=== PATIENT | female | born 1965 | race Caucasian/White ===

== ENCOUNTER 2017-01-23 01:12 | Emergency (ER) | payer OTHER, MEDICARE ==
[2017-01-23] MEDS ORDERED: Ondansetron HCl/PF 4 MG/2 ML Vial ONE ×2 (01:25→03:27)
[2017-01-23] MEDS ORDERED: Ketorolac Tromethamine 30 MG/ML VIAL ONE (01:25)
[2017-01-23 01:32] LABS: Bilirubin Negative (Negative); Blood, Urine Moderate (Negative); Clarity Slightly Cloudy (Clear); Glucose, Urine (Dipstick) Negative (Negative); Leukocyte Negative (Negative); Nitrite Negative (Negative); Protein, Urine (Dipstick) 30 mg/dL (Neg-Trace); Specific Gravity, Urine 1.025 (1.005-1.030); pH, Urine 5.5 (5.0-9.0)
[2017-01-23 01:35] LABS: Bacteria/HPF Rare-Few HPF (None Seen); Squamous Epithelial 0-3 HPF (0-3); WBC/HPF 0-3 HPF (0-3)
[2017-01-23 02:21] LABS: ALT (SGPT) 16 U/L (8-55); AST (SGOT) 13 U/L (5-34); Albumin 3.9 g/dL (3.5-5.0); Alkaline Phosphatase 74 U/L (40-150); Anion Gap 13 mmol/L (10-20); BUN (Urea Nitrogen) 10 mg/dL (9.8-20.1); Bilirubin, Total 0.6 mg/dL (0.2-1.2); Calc. Creatinine Clearance 0 mL/min (70-130); Calcium 8.5 mg/dL (7.8-10.44); Carbon Dioxide 19 mmol/L (22-29); Chloride 112 mmol/L (98-107); Estimated GFR-MDRD 65; Globulin 2.8 g/dL (2.4-3.5); Glucose 129 mg/dL (70-105); Potassium 3.4 mmol/L (3.5-5.1); Protein, Total 6.7 g/dL (6.0-8.3); Sodium 141 mmol/L (136-145)
[2017-01-23 02:28] LABS: #Basophils 0.1 thou/uL (0.0-0.2); #Eosinphils 0.1 thou/uL (0.0-0.7); #Lymphocytes 1.5 thou/uL (1.20-3.40); #Monocytes 0.5 thou/uL (0.11-0.59); #Neutrophils 13.3 thou/uL (1.40-6.50); %Basophils 0.4 % (0.0-1.0); %Eosinophils 0.6 % (0.0-10.0); %Lymphocytes 9.4 % (21.0-51.0); %Monocytes 3.5 % (0.0-10.0); Anisocytosis SLIGHT = 6-15 cells (100X) (0-5/hpf); Hemoglobin 14.6 g/dL (12.0-16.0); MDiff Complete? YES; Mean Corpuscular HGB CONC 35.6 g/dL (32.0-36.0); Mean Corpuscular Hemoglobin 34.4 pg (27.0-31.0); Mean Corpuscular Volume 96.6 fl (81.0-99.0); Mean Platelet Volume 9.1 fL (7.4-10.4); PLT Morphology Comment Appears Adequate; Platelet Count 189 thou/uL (130-400); RBC Distribution Width 11.7 % (11.5-14.5); Red Blood Cell (RBC) Count 4.26 mill/uL (4.20-5.40); White Blood Cell (WBC) Count 15.5 thou/uL (4.8-10.8)
[2017-01-23] MEDS ORDERED: HYDROcodone/Acetaminophen 5/325 mg Tablet ONE (04:45)
[2017-01-23] MEDS ORDERED: methylPREDNISolone Sod Succ/PF 125 MG/2 ML VIAL ONE (04:45)
--- NOTE | 2017-01-23 11:23 | CT ---
PRELIMINARY REPORT/[facility]/EMERGENCY AFTER HOURS PROCEDURE: EXAM: CT Abdomen and Pelvis With Intravenous Contrast CLINICAL HISTORY: 51 years old, female; Pain; Other: Charo; Prior surgery; Surgery type: Cholecystectomy '12 TECHNIQUE: Axial computed tomography images of the abdomen and pelvis with intravenous contrast. EXAM DATE/TIME: Exam ordered 01/23/2017 2:58 AM COMPARISON: No relevant prior studies available. FINDINGS: Lower thorax: No acute findings. ABDOMEN: Liver: Unremarkable. No mass. Gallbladder and bile ducts: Prior cholecystectomy. No ductal dilation. Pancreas: Unremarkable. No mass. No ductal dilation. Spleen: Unremarkable. No splenomegaly. Adrenals: Unremarkable. No mass. Kidneys and ureters: 2 mm obstructing stone in the distal right ureter causing mild obstructive urop athy. Stomach and bowel: Unremarkable. No obstruction. No mucosal thickening. Appendix: Normal appendix. PELVIS: Bladder: Unremarkable. No mass. Reproductive: Unremarkable as visualized. ABDOMEN and PELVIS: Intraperitoneal space: Unremarkable. No free air. No significant fluid collection. Bones/joints: No acute fracture. No dislocation. Soft tissues: Unremarkable. Vasculature: Unremarkable. No abdominal aortic aneurysm. Lymph nodes: Unremarkable. No enlarged lymph nodes. IMPRESSION: 2 mm obstructing stone in the distal right ureter causing mild obstructive uropathy. Thank you for allowing us to participate in the care of your patient. Dictated and Authenticated by: Larry Flaherty MD 01/23/2017 3:47 AM Central Time ([place] \T\ [place]) FINAL REPORT CT ABDOMEN AND PELVIS WITH IV CONTRAST: DATE: 01/23/17. TIME: Performed on emergency basis at 0302 hours. HISTORY: Right flank pain. FINDINGS: Findings agree with the preliminary report from [facility]. Partial obstruction of the right ureter is present distally at a 2 mm calculus. Lack of oral contrast limits evaluation of the bowel. The gallbladder is surgically absent. POS: [facility]
== END 2017-01-23 04:57 | disposition home or self-care (01) ==
LOC: BURERS 01:12
DX: N20.2 Calculus of kidney with calculus of ureter (principal); M16.0 Bilateral primary osteoarthritis of hip; Z79.899 Other long term (current) drug therapy
CPT/HCPCS: 36415; 74177; 80053; 81003; 81015; 85025; 96361; 96374; 96375; 96376; A4216; J1885; J2270; J2405; J2930

== ENCOUNTER 2017-03-09 19:19 | Emergency (ER) | payer OTHER, MEDICARE ==
[2017-03-09 20:02] LABS: Blood, Urine Large (Negative); Clarity Cloudy (Clear); Glucose, Urine (Dipstick) Negative (Negative); Leukocyte Negative (Negative); Nitrite Negative (Negative); Protein, Urine (Dipstick) > or equal to 300 mg/dL (Neg-Trace); pH, Urine 5.5 (5.0-9.0)
[2017-03-09 20:03] LABS: Bilirubin Negative (Negative); Specific Gravity, Urine 1.023 (1.002-1.036)
[2017-03-09 20:05] LABS: RBC/HPF GREATER THAN 50-TNTC HPF (0-3)
[2017-03-09 20:08] LABS: Bacteria/HPF Rare-Few HPF (None Seen); Crystals/HPF 1+ CA OXALATE HPF (Negative); Squamous Epithelial 0-3 HPF (0-3); WBC/HPF 0-3 HPF (0-3); Yeast-All Forms 1+ HPF (None Seen)
[2017-03-09 21:02] LABS: #Basophils 0.1 thou/uL (0.0-0.2); #Eosinphils 0.2 thou/uL (0.0-0.7); #Lymphocytes 2.6 thou/uL (1.20-3.40); #Monocytes 0.6 thou/uL (0.11-0.59); #Neutrophils 4.9 thou/uL (1.40-6.50); %Basophils 1.6 % (0.0-1.0); %Eosinophils 2.6 % (0.0-10.0); %Lymphocytes 30.2 % (21.0-51.0); %Monocytes 7.4 % (0.0-10.0); %Neutrophils 58.2 % (42.0-75.0); Hemoglobin 16.5 g/dL (12.0-16.0); Mean Corpuscular HGB CONC 35.2 g/dL (32.0-36.0); Mean Corpuscular Hemoglobin 33.7 pg (27.0-31.0); Mean Corpuscular Volume 95.7 fl (81.0-99.0); Mean Platelet Volume 9.2 fL (7.4-10.4); Platelet Count 257 thou/uL (130-400); RBC Distribution Width 11.4 % (11.5-14.5); Red Blood Cell (RBC) Count 4.89 mill/uL (4.20-5.40); White Blood Cell (WBC) Count 8.5 thou/uL (4.8-10.8)
[2017-03-09 21:12] LABS: ALT (SGPT) 18 U/L (8-55); AST (SGOT) 16 U/L (5-34); Albumin 4.8 g/dL (3.5-5.0); Alkaline Phosphatase 90 U/L (40-150); Anion Gap 14 mmol/L (10-20); BUN (Urea Nitrogen) 9 mg/dL (9.8-20.1); Bilirubin, Total 0.7 mg/dL (0.2-1.2); Calc. Creatinine Clearance 0 mL/min (70-130); Calcium 9.5 mg/dL (7.8-10.44); Carbon Dioxide 23 mmol/L (22-29); Chloride 108 mmol/L (98-107); Estimated GFR-MDRD 61; Globulin 3.3 g/dL (2.4-3.5); Glucose 83 mg/dL (70-105); Potassium 3.5 mmol/L (3.5-5.1); Protein, Total 8.1 g/dL (6.0-8.3); Sodium 141 mmol/L (136-145)
--- NOTE | 2017-03-09 23:00 | CT ---
CT ABDOMEN AND PELVIS WITHOUT CONTRAST 03/09/[address] of the abdomen and pelvis was performed for evaluation of hematuria. There is a history of renal and ureteral calculi. Comparison is made with the 01/23/17 study. Several calculi are seen in the left kidney in particular. I am not impressed by any in the right ki dney. There is a 1 cm lucency in the mid portion of the right kidney consistent with a cyst which wa s present before. The right ureter and right renal pelvis are slightly dilated compared to the left side. Nevertheless, I cannot unequivocally diagnose a ureteral stone. There was one image in the pel vis where one might wonder about a tiny calculus near the right UVJ, but the appearance does not see m much different than the January CT scan. Various other pelvic calcifications are obviously phlebolith s and have not changed at all in the interval. No calculi are appreciated within the urinary bladder . The lung bases are clear. The liver, spleen, pancreas, adrenal glands and abdominal aorta showed no acute findings. There has been a prior cholecystectomy. The bowel is nondistended and shows no sign of obstruction. The appendix appears normal. No free air or free fluid was present. CT of the pelvis showed no pelvic masses, fluid collections or inflammatory changes. IMPRESSION: 1. Nonobstructing left renal calculi. 2. Presumed 1 cm right renal cyst. 3. Slight prominence in size of the right ureter and right renal pelvis compared to the left. Unequi vocal ureteral calculus was not seen, though a few calcifications were present near the right UVJ th at december or may not be significant. There is certainly not the degree of obstruction that was seen on the prior study. POS: HOME
== END 2017-03-09 22:30 | disposition home or self-care (01) ==
LOC: BURERS 19:19
DX: N20.0 Calculus of kidney (principal); Z79.891 Long term (current) use of opiate analgesic; Z79.899 Other long term (current) drug therapy
CPT/HCPCS: 74176; 80053; 81003; 81015; 85025; 87086; 96360

== ENCOUNTER 2017-08-20 02:54 | Emergency (ER) | payer OTHER, MEDICARE ==
[2017-08-20 03:27] LABS: Bilirubin Negative (Negative); Blood, Urine Moderate (Negative); Clarity Clear (Clear); Glucose, Urine (Dipstick) Negative (Negative); Leukocyte Trace (Negative); Nitrite Negative (Negative); Protein, Urine (Dipstick) Negative (Neg-Trace); Urobilinogen 0.2 mg/dL (0.2-1.0); pH, Urine 5.5 (5.0-9.0)
[2017-08-20] MEDS ORDERED: Ketorolac Tromethamine 30 MG/ML VIAL ONE (03:30)
[2017-08-20 03:35] LABS: Bacteria/HPF 1+ HPF (None Seen); Squamous Epithelial 0-3 HPF (0-3)
[2017-08-20 03:41] LABS: #Basophils 0.2 thou/uL (0.0-0.2); #Eosinphils 0.3 thou/uL (0.0-0.7); #Lymphocytes 3.3 thou/uL (1.20-3.40); #Monocytes 0.9 thou/uL (0.11-0.59); #Neutrophils 6.9 thou/uL (1.40-6.50); %Basophils 1.5 % (0.0-1.0); %Eosinophils 2.6 % (0.0-10.0); %Lymphocytes 28.2 % (21.0-51.0); %Monocytes 7.7 % (0.0-10.0); Hemoglobin 14.6 g/dL (12.0-16.0); Mean Corpuscular HGB CONC 35.8 g/dL (32.0-36.0); Mean Corpuscular Hemoglobin 33.4 pg (27.0-31.0); Mean Corpuscular Volume 93.2 fl (81.0-99.0); Mean Platelet Volume 8.3 fL (7.4-10.4); Platelet Count 208 thou/uL (130-400); RBC Distribution Width 10.7 % (11.5-14.5); Red Blood Cell (RBC) Count 4.36 mill/uL (4.20-5.40); White Blood Cell (WBC) Count 11.5 thou/uL (4.8-10.8)
[2017-08-20 03:50] LABS: ALT (SGPT) 16 U/L (8-55); AST (SGOT) 13 U/L (5-34); Albumin 3.7 g/dL (3.5-5.0); Alkaline Phosphatase 73 U/L (40-150); Anion Gap 14 mmol/L (10-20); BUN (Urea Nitrogen) 14 mg/dL (9.8-20.1); Bilirubin, Total 0.5 mg/dL (0.2-1.2); Calc. Creatinine Clearance 0 mL/min (70-130); Calcium 9.2 mg/dL (7.8-10.44); Carbon Dioxide 19 mmol/L (22-29); Chloride 109 mmol/L (98-107); Estimated GFR-MDRD 71; Globulin 2.5 g/dL (2.4-3.5); Glucose 110 mg/dL (70-105); Potassium 3.6 mmol/L (3.5-5.1); Protein, Total 6.2 g/dL (6.0-8.3); Sodium 138 mmol/L (136-145)
[2017-08-20] MEDS ORDERED: HYDROcodone/Acetaminophen 5/325 mg Tablet ONE (04:19)
[2017-08-20] MEDS ORDERED: methylPREDNISolone Sod Succ/PF 125 MG/2 ML VIAL ONE (04:19)
--- NOTE | 2017-08-20 10:02 | CT ---
PRELIMINARY REPORT/[facility]/EMERGENCY AFTER HOURS PROCEDURE: EXAM: CT Abdomen and Pelvis Without Intravenous Contrast EXAM DATE/TIME: Exam ordered 08/20/2017 3:36 AM CLINICAL HISTORY: 51 years old, female; Pain; Abdominal pain; Generalized; Patient HX: Abd pain, HX of kidney stones TECHNIQUE: Axial computed tomography images of the abdomen and pelvis without intravenous contrast. COMPARISON: No relevant prior studies available. FINDINGS: Lower thorax: No acute findings. ABDOMEN: Liver: Unremarkable. Gallbladder and bile ducts: Prior cholecystectomy. No ductal dilation. Pancreas: Unremarkable. No ductal dilation. Spleen: Unremarkable. No splenomegaly. Adrenals: Unremarkable. No mass. Kidneys and ureters: 2-3 mm obstructing stone at the left UVJ causing mild obstructive uropathy. Nonobstructive nephrolithiasis left kidney. Small right renal cyst. Stomach and bowel: Unremarkable. No obstruction. No mucosal thickening. Appendix: Normal appendix. PELVIS: Bladder: Unremarkable. No stones. Reproductive: Unremarkable as visualized. ABDOMEN and PELVIS: Intraperitoneal space: Unremarkable. No free air. No significant fluid collection. Bones/joints: No acute fracture. No dislocation. Soft tissues: Unremarkable. Vasculature: Unremarkable. No abdominal aortic aneurysm. Lymph nodes: Unremarkable. No enlarged lymph nodes. IMPRESSION: 2-3 mm obstructing stone at the left UVJ causing mild obstructive uropathy. Thank you for allowing us to participate in the care of your patient. Dictated and Authenticated by: Larry Flaherty MD 08/20/2017 3:52 AM Central Time ([place] & [place]) FINAL REPORT CT ABDOMEN AND PELVIS WITHOUT CONTRAST: Date: 08/20/17 Comparison is made with the 03/09/17 study. FINDINGS: Today's exam shows a small distal left ureteral calculus near the UVJ measuring about 2-3 mm. It is c ausing obstruction with mild to moderate left hydronephrosis. Nonobstructing stones are seen in the l eft kidney and they have increased in size since the 03/09/17 CT. The remainder of the examination was unremarkable. The lung bases are clear. The liver, spleen, pancr eas, adrenal glands, and abdominal aorta show no acute findings within the limitations of the noncont rast study. There is a lucency in the middle third of the right kidney, which was there before, which is presumed to be a small cyst. Ultrasound would be confirmatory. The bowel is nondistended. There are no inflammatory changes around bowel. Prior cholecystectomy is n oted. No free air or free fluid seen. CT of the pelvis shows no pelvic masses, free fluid, or inflammatory change. IMPRESSION: 1. 2-3 mm distal left ureteral calculus causing hydronephrosis on the left. 2. Presumed right renal cyst, size stable. Ultrasound needed for confirmation. 3. Nonobstructing calculi in the left kidney, which have enlarged in size since the 03/09/17 CT. Report in agreement with preliminary reading by [facility]. POS: [facility]
== END 2017-08-20 04:30 | disposition home or self-care (01) ==
LOC: BURERS 02:54
DX: N13.2 Hydronephrosis with renal and ureteral calculous obstruction (principal); M16.0 Bilateral primary osteoarthritis of hip; Z79.899 Other long term (current) drug therapy
CPT/HCPCS: 74176; 80053; 81003; 81015; 85025; 87086; 96361; 96374; 96375; J1885; J2930

== ENCOUNTER 2017-10-22 11:18 | Emergency (ER) | payer OTHER, MEDICARE ==
[2017-10-22] MEDS ORDERED: diphenhydrAMINE 50 MG/ML VIAL ONE (11:44)
[2017-10-22] MEDS ORDERED: Morphine 4 MG/ML Carpuject ONE ×2 (11:44→13:28)
[2017-10-22] MEDS ORDERED: Ketorolac Tromethamine 30 MG/ML VIAL ONE (11:44)
[2017-10-22 11:52] LABS: Bilirubin Negative (Negative); Blood, Urine Negative (Negative); Clarity Clear (Clear); Glucose, Urine (Dipstick) Negative (Negative); Leukocyte Negative (Negative); Nitrite Negative (Negative); Protein, Urine (Dipstick) Negative (Neg-Trace); Urobilinogen 0.2 mg/dL (0.2-1.0); pH, Urine 5.5 (5.0-9.0)
[2017-10-22 13:03] LABS: Hemoglobin 14.9 g/dL (12.0-16.0); Mean Corpuscular HGB CONC 35.9 g/dL (32.0-36.0); Mean Corpuscular Hemoglobin 34.4 pg (27.0-31.0); Mean Corpuscular Volume 95.7 fl (81.0-99.0); Mean Platelet Volume 9.4 fL (7.4-10.4); Platelet Count 196 thou/uL (130-400); RBC Distribution Width 11.6 % (11.5-14.5); Red Blood Cell (RBC) Count 4.35 mill/uL (4.20-5.40); White Blood Cell (WBC) Count 11.5 thou/uL (4.8-10.8)
[2017-10-22 13:04] LABS: BHCG - Serum Negative (NEGATIVE); Pregs Control Background? CLEAR/WHITE (CLR/WHITE); Pregs Control Bar Appear? YES (CONTROL BAR)
[2017-10-22 13:05] LABS: ALT (SGPT) 18 U/L (8-55); AST (SGOT) 16 U/L (5-34); Alkaline Phosphatase 80 U/L (40-150); Anion Gap 11 mmol/L (10-20); BUN (Urea Nitrogen) 7 mg/dL (9.8-20.1); Bilirubin, Total 0.5 mg/dL (0.2-1.2); Calc. Creatinine Clearance 0 mL/min (70-130); Carbon Dioxide 24 mmol/L (22-29); Chloride 110 mmol/L (98-107); Estimated GFR-MDRD 62; Globulin 2.8 g/dL (2.4-3.5); Glucose 120 mg/dL (70-105); Potassium 3.5 mmol/L (3.5-5.1); Protein, Total 6.8 g/dL (6.0-8.3); Sodium 141 mmol/L (136-145)
[2017-10-22 13:11] LABS: #Basophils 0.1 thou/uL (0.0-0.2); #Eosinphils 0.1 thou/uL (0.0-0.7); #Monocytes 0.4 thou/uL (0.11-0.59); %Basophils 0.8 % (0.0-1.0); %Eosinophils 0.9 % (0.0-10.0); %Lymphocytes 8.8 % (21.0-51.0); %Monocytes 3.3 % (0.0-10.0); %Neutrophils 86.2 % (42.0-75.0); MDiff Complete? YES; Polychromasia SLIGHT = 2-3 cells (100X) (0-2/hpf)
--- NOTE | 2017-10-22 21:03 | CT ---
CT ABDOMEN AND PELVIS WITHOUT CONTRAST: Date: 10-22-[address] of the abdomen and pelvis was performed for evaluation of left lower abdominal pain. Comparison: 08-20-17 FINDINGS: The lung bases are clear. The liver, spleen, pancreas, adrenal glands, and abdominal aorta were unrem arkable within the limitations of a noncontrast study. There is a large 9 mm stone in the left kidney at the UPJ causing moderate left hydronephrosis. Previously this stone was sitting much more proxima lly within the kidney itself and not causing any obstruction. No calculi are seen in the right kidney . There is a rounded low density area in the right kidney measuring about 1.2 cm in size and is presu mably a cyst. It can even be seen on a 2006 CT scan. The bowel is nondistended. There is no sign of inflammatory change around bowel, bowel wall thickenin g or obstruction. There is no evidence of diverticulitis. No free air or free fluid was seen. CT of the pelvis shows no masses, inflammatory changes, or adenopathy. The bony structures show no ac [place] change. IMPRESSION: 1. 9 mm calculus at the left UPJ causing moderate left hydronephrosis. 2. Presumed cyst in the lower pole of the right kidney, stable. POS: HOME
== END 2017-10-22 14:33 | disposition short-term general hospital (02) ==
LOC: BURERS 11:18
DX: N13.2 Hydronephrosis with renal and ureteral calculous obstruction (principal); M35.00 Sjogren syndrome, unspecified; M79.7 Fibromyalgia; M19.90 Unspecified osteoarthritis, unspecified site
CPT/HCPCS: 36415; 51701; 74176; 80053; 81003; 84703; 85025; 94760; 96374; 96375; 96376; J1200; J1885; J2270

== ENCOUNTER 2017-10-27 22:55 | Emergency (ER) | payer OTHER, MEDICARE ==
[2017-10-27] MEDS ORDERED: EPINEPHrine 1 MG/10 ML Abboject SYRINGE ONE (23:46)
[2017-10-27] MEDS ORDERED: EPINEPHrine 1 mg/ml MDV (1ml Charge) ONE (23:56)
[2017-10-27] MEDS ORDERED: methylPREDNISolone Sod Succ/PF 125 MG/2 ML VIAL ONE (23:57)
[2017-10-27] MEDS ORDERED: diphenhydrAMINE 50 MG/ML VIAL ONE (23:57)
== END 2017-10-27 23:34 | disposition home or self-care (01) ==
LOC: BURERS 22:55
DX: Z53.21 Procedure and treatment not carried out due to patient leaving prior to being seen by health care provider (principal)
CPT/HCPCS: J0171; J1200; J2930

== ENCOUNTER 2018-05-22 19:44 | Emergency (ER) | payer OTHER, MEDICARE ==
[2018-05-22] MEDS ORDERED: Fluorescein Opthalmic Strip ONE (19:55)
== END 2018-05-22 20:12 | disposition home or self-care (01) ==
LOC: BURERS 19:44
DX: S05.11XA Contusion of eyeball and orbital tissues, right eye, initial encounter (principal); Z79.899 Other long term (current) drug therapy; W22.8XXA Striking against or struck by other objects, initial encounter
CPT/HCPCS: 99283

== ENCOUNTER 2018-12-09 20:40 | Emergency (ER) | payer BC, MEDICARE ==
--- NOTE | 2018-12-10 07:56 | RAD ---
RIGHT WRIST TWO VIEWS: Date: 12-09-18 FINDINGS: No fracture was seen. The carpal relationships appeared normal. IMPRESSION: No acute findings. POS: HOME
--- NOTE | 2018-12-10 07:57 | RAD ---
RIGHT ELBOW FOUR VIEWS: Date: 12-09-18 FINDINGS: No fracture or joint effusion was seen. The joint itself appeared normal. IMPRESSION: No acute finding. POS: HOME
== END 2018-12-09 21:27 | disposition home or self-care (01) ==
LOC: BURERS 20:40
DX: S50.01XA Contusion of right elbow, initial encounter (principal); M19.90 Unspecified osteoarthritis, unspecified site; Z79.891 Long term (current) use of opiate analgesic; Z79.899 Other long term (current) drug therapy; W01.0XXA Fall on same level from slipping, tripping and stumbling without subsequent striking against object, initial encounter